=== PATIENT | male | born 1995 | race African-American/Black ===

== ENCOUNTER 2016-07-26 15:32 | Emergency (ER) | payer OTHER ==
[~2016-07-26] VITALS: Ht 170.2 cm; Wt 72.6 kg
[~2016-07-26 15:32] MED LIST: ALBUTEROL2.5 MG/0.5 IH; BACTRIM DS TAB1 EACH PO; FLEXERIL PO; IBUPROFEN 600600 M1 PO; IBUPROFEN 800800 M1 PO; LOPERAMIDE 2 MG2 M1; NORCO 5-325 TA1 EACH PO; ONDANSETRON HCL4 M2 PO
[2016-07-26 15:33] VITALS: BP 122/67
[2016-07-26] MEDS ORDERED: PROAIR HFA8.5 GM PO (15:35)
== END 2016-07-26 16:06 | disposition home or self-care (01) ==
LOC: ER 15:32
DX: N50.9 Disorder of male genital organs, unspecified (principal); J45.909 Unspecified asthma, uncomplicated; Z87.891 Personal history of nicotine dependence

== ENCOUNTER 2017-04-11 23:25 | Emergency (ER) | payer OTHER ==
[~2017-04-11] VITALS: Ht 170.2 cm; Wt 72.6 kg
[~2017-04-11 23:25] MED LIST changes: +PROAIR HFA8.5 GM PO
[2017-04-11 23:33] VITALS: BP 122/63
[2017-04-11] MEDS ORDERED: IBUPROFEN 800800 M1 PO (23:46)
[2017-04-11] MEDS ORDERED: FLEXERIL PO (23:46)
== END 2017-04-11 23:53 | disposition home or self-care (01) ==
LOC: ER 23:25
DX: S46.811A Strain of other muscles, fascia and tendons at shoulder and upper arm level, right arm, initial encounter (principal); J45.909 Unspecified asthma, uncomplicated; Z87.891 Personal history of nicotine dependence; V89.2XXA Person injured in unspecified motor-vehicle accident, traffic, initial encounter; Y93.I9 Activity, other involving external motion; Y92.89 Other specified places as the place of occurrence of the external cause; Y99.8 Other external cause status

== ENCOUNTER 2019-01-09 08:01 | Emergency (ER) | payer OTHER ==
[~2019-01-09] VITALS: Ht 170.2 cm; Wt 72.6 kg
[2019-01-09 08:08] VITALS: BP 130/67
[2019-01-09 08:15] LABS: URINE BILIRUBIN NEGATIVE (Negative); URINE BLOOD NEGATIVE (Negative); URINE CLARITY CLEAR; URINE COLOR YELLOW; URINE GLUCOSE-RANDOM* NEGATIVE (Negative); URINE KETONES NEGATIVE (Negative); URINE LEUKOCYTES-REFLEX NEGATIVE (Negative); URINE NITRITE-REFLEX NEGATIVE (Negative); URINE PROTEIN (DIPSTICK) NEGATIVE (Negative)
== END 2019-01-09 08:48 | disposition home or self-care (01) ==
LOC: ER 08:01
PROVIDERS: Emergency Medicine
DX: N50.811 Right testicular pain (principal); N50.812 Left testicular pain; J45.909 Unspecified asthma, uncomplicated; Z87.891 Personal history of nicotine dependence